=== PATIENT | male | born 2000 | race African-American/Black ===

== ENCOUNTER 2020-09-09 12:45 | Emergency (ER) | payer SELFPAY ==
[~2020-09-09] VITALS: Ht 185.4 cm; Wt 66.8 kg
[2020-09-09 12:52] VITALS: BP 126/60
[2020-09-09] MEDS ORDERED: CefTRIAXone 1000mg IM Kit (w/lidocaine diluent) IM STA (13:03)
[2020-09-09] MEDS ORDERED: azithromycin 250mg tablet PO ONE (13:05)
== END 2020-09-09 13:56 | disposition home or self-care (01) ==
LOC: ER 12:46
DX: A64 Unspecified sexually transmitted disease (principal)
CPT/HCPCS: 36415; 87491; 87591; 96372; 99283; J0696